=== PATIENT | male | born 1960 | race Caucasian/White ===

== ENCOUNTER → 2017-04-30 | Outpatient (CLI) | payer OTHER | END | disposition home or self-care (01) | LOC: LABWHC1 14:33 | PROVIDERS: ATTEND Internal Medicine | DX: G25.0 Essential tremor (principal) | CPT/HCPCS: 36415; 84439; 84443 ==

== ENCOUNTER 2017-11-03 08:47 | Day surgery (SDC) | payer OTHER ==
[2017-10-30 13:33] VITALS: BMI 25.0
[~2017-11-03 08:47] MED LIST: LACTATED RINGERS 1,000 ML IV SCH
[2017-11-03 09:12] VITALS: TEMP 97
[2017-11-03] MEDS ORDERED: PROPOFOL 10 MG/ML 20 ML VIAL IV ONE (09:35)
[2017-11-03] MEDS ORDERED: LIDOCAINE 1% INJ 10MG/ML (20 ML MDV) ONE (09:35)
--- NOTE | 2017-11-03 09:39 | P.GSHP ---
History of Present Illness H&P Date: 11/03/17 Chief Complaint: Colon cancer screening Patient here today for colonoscopy. Last colonoscopy 3 years ago. At that time he had a large polyp in the ascending colon that required surgical resection. This was performed by Dr. Stephens. No rectal bleeding or melena. Past Medical History Past Medical History: Osteoarthritis (OA), Pneumonia Additional Past Medical History / Comment(s): DDD, BULDGING DISCS WITH BACK PAIN , FREQUENT DIARRHEA. History of Any Multi-Drug Resistant Organisms: None Reported Past Surgical History: Bowel Resection, Tonsillectomy Additional Past Surgical History / Comment(s): PARTIAL COLECTOMY (PRE-CANCEROUS MASS), GANGLION CYST LEFT WRIST., INTERNAL HEMORRHOIDS. Past Anesthesia/Blood Transfusion Reactions: No Reported Reaction Additional Past Anesthesia/Blood Transfusion Reaction / Comment(s): STATES DIFFICULTY WAKING UP AFTER TONSILLECTOMY. Past Psychological History: No Psychological Hx Reported Smoking Status: Former smoker Past Alcohol Use History: Occasional Additional Past Alcohol Use History / Comment(s): QUIT SMOKING 1980, SMOKED 2 PPD., SMOKED 10 YEARS. Past Drug Use History: None Reported - Past Family History Mother Family Medical History: No Reported History Medications and Allergies Home Medications Medication Instructions Recorded Confirmed Type Ibuprofen [Motrin] 800 mg PO TID PRN 10/30/17 10/30/17 History Allergies Allergy/AdvReac Type Severity Reaction Status Date / Time amoxicillin Allergy Unknown Rash/Hives Verified 10/30/17 13:24 Surgical - Exam Vital Signs Temp Pulse Resp BP Pulse Ox 97.0 F L 92 16 132/83 98 11/03/17 09:11 11/03/17 09:11 11/03/17 09:11 11/03/17 09:11 11/03/17 09:11 Physical exam: General: Well-developed, well-nourished HEENT: Normocephalic, sclerae nonicteric Abdomen: Nontender, nondistended Extremities: No edema Neuro: Alert and oriented Assessment and Plan (1) Colon cancer screening Narrative/Plan: Will proceed with colonoscopy. Current Visit: Yes Status: Acute Code(s): Z12.11 - ENCOUNTER FOR SCREENING FOR MALIGNANT NEOPLASM OF COLON SNOMED Code(s): 794095627
--- NOTE | 2017-11-03 09:50 | P.PCN ---
Date of Procedure: 11/03/17 Procedure(s) Performed: PREOPERATIVE DIAGNOSIS: Colon cancer screening POSTOPERATIVE DIAGNOSIS: Normal exam PROCEDURE: Colonoscopy ANESTHESIA: MAC SURGEON: Ry Hurst M.D. SPECIMENS: None ENDOSCOPIC PROCEDURE: The patient was placed on the endoscopy table in the left decubitus position. The Olympus colonoscope was inserted into the anus and passed under direct visualization to the ileocolonic anastomosis. From that point the scope was slowly withdrawn. There were no neoplastic inflammatory or polypoid lesions throughout the transverse, descending, sigmoid and rectum. There was no diverticulosis noted. Digital rectal examination was normal. The patient was taken to the recovery room in stable condition per anesthesia guidelines. RECOMMENDATIONS: Increase fiber. Follow-up colon 5 years Disposition: observation
[2017-11-03 10:22] VITALS: BP 110/75; PULSE 89; RESP 18
== END 2017-11-03 10:41 | disposition home or self-care (01) ==
LOC: ORWHC2ENDO 08:47
PROVIDERS: ATTEND Surgery
DX: Z12.11 Encounter for screening for malignant neoplasm of colon (principal); Z87.19 Personal history of other diseases of the digestive system; M19.90 Unspecified osteoarthritis, unspecified site; R19.7 Diarrhea, unspecified; Z90.49 Acquired absence of other specified parts of digestive tract; Z87.891 Personal history of nicotine dependence; Z88.0 Allergy status to penicillin
CPT/HCPCS: J2001; J2704; G0121; 45378

== ENCOUNTER → 2018-11-17 | Outpatient (CLI) | payer MEDICAID ==
[2018-11-17 07:45] LABS: Basophils # (A) 0.1 k/uL (0-0.2); Basophils % (A) 1 %; Eosinophils # (A) 0.3 k/uL (0-0.7); Eosinophils % (A) 4 %; HGB 15.3 gm/dL (13.0-17.5); Lymphocytes # (A) 2.1 k/uL (1.0-4.8); Lymphocytes % (A) 33 %; MCH 30.4 pg (25.0-35.0); MCHC 33.3 g/dL (31.0-37.0); MCV 91.3 fL (80.0-100.0); Mean Platelet Volume 6.6; Monocytes # (A) 0.5 k/uL (0-1.0); Monocytes % (A) 8 %; Neutrophils # (A) 3.3 k/uL (1.3-7.7); Neutrophils % (A) 53 %; Platelet Count 259 k/uL (150-450); RBC 5.04 m/uL (4.30-5.90); RDW 12.9 % (11.5-15.5); WBC 6.3 k/uL (3.8-10.6)
[2018-11-17 11:49] LABS: Albumin 4.4 g/dL (3.80-4.90); Albumin/Globulin Ratio 2.32 (1.60-3.17); Anion Gap 6.5 mmol/L (4.00-12.00); Calcium 9.1 mg/dL (8.7-10.3); Carbon Dioxide 27.5 mmol/L (21.6-31.8); Globulin 1.9 g/dL (1.6-3.3); Potassium 4.1 mmol/L (3.5-5.5); Total Bilirubin 1.8 mg/dL (0.3-1.2); Total Protein 6.3 g/dL (6.2-8.2)
[2018-11-17 11:56] LABS: T4, Free (Free Thyroxine) 1.3 ng/dL (0.80-1.80)
[2018-11-17 13:17] LABS: Cat Epith & Dander IgE <0.10 kU/L; Dermato. farinae IgE <0.10 kU/L; Dog Dander IgE <0.10 kU/L
[2018-11-17 13:18] LABS: Alternaria alternata IgE <0.10 kU/L; Cockroach IgE <0.10 kU/L; Maple (Box Elder) IgE 0.46 kU/L
[2018-11-17 13:19] LABS: Birch IgE 3.15 kU/L; Elm IgE 0.16 kU/L; Oak IgE 0.35 kU/L; Ragweed,Common IgE <0.10 kU/L
[2018-11-17 14:41] LABS: Immunoglobulin M 36.6 mg/dL (40.0-280.0)
[2018-11-17 14:42] LABS: Red Top (Bentgrass) IgE 4.44 kU/L
[2018-11-17 15:06] LABS: Erythrocyte Sedimentation Rate 1 mm/hr (0-15)
== END ==
LOC: LABWHC1 07:05
PROVIDERS: ATTEND Internal Medicine
DX: Z00.00 Encounter for general adult medical examination without abnormal findings (principal); J32.9 Chronic sinusitis, unspecified; J30.9 Allergic rhinitis, unspecified
CPT/HCPCS: 84439; 80061; 80053; 85652; 84443; 85025; 86003; 82784 ×3; 82785; 86038; 36415; G0103

== ENCOUNTER → 2018-11-23 | Outpatient (CLI) | payer MEDICAID ==
--- NOTE | 2018-11-23 15:31 | CT ---
EXAMINATION TYPE: CT sinus wo con DATE OF EXAM: 11/23/2018 COMPARISON: NONE HISTORY: Facial pain and pressure per patient. Chronic sinusitis per order. CT DLP: 597 mGycm. Automated Exposure Control for Dose Reduction was Utilized. TECHNIQUE: CT scan of the sinuses is performed without contrast, axial images are obtained, coronal r eformatted images are also reviewed. FINDINGS: There is 2.5 cm mucous retention cyst or polyp in the posterior inferior left maxillary sin us coronal image 26. There is minimal mucosal thickening in the inferior right maxillary sinus. Ther e is mild to minimal mucosal thickening involving inferior frontal sinuses and anterior ethmoid sinus es bilaterally. No suspicious opacification or air-fluid levels are seen. The ostiomeatal complex is patent bilaterally on the coronal images. Visualized portion of mastoid air cells show no abnormal opacification. The globes are intact bilate rally. Visualized portion of brain parenchyma is unremarkable. IMPRESSION: Fairly mild chronic paranasal sinus disease. No acute sinusitis.
== END | disposition home or self-care (01) ==
LOC: RADCTMAIN 14:44
PROVIDERS: ATTEND Internal Medicine
DX: J32.8 Other chronic sinusitis (principal)
CPT/HCPCS: 70486

== ENCOUNTER → 2018-12-24 | Outpatient (CLI) | payer MEDICAID ==
--- NOTE | 2018-12-24 08:23 | CT ---
EXAMINATION TYPE: CT iac w con DATE OF EXAM: 12/24/2018 COMPARISON: None HISTORY: 58-year-old male left otalgia CT DLP: 254 mGycm Automated exposure control for dose reduction was used. TECHNIQUE: Contiguous high-resolution axial scanning of the temporal bones performed with IV Contras t, patient injected with 100 ml mL of Isovue 300. Coronal reformatted images obtained. FINDINGS: There is no abnormality of visualized intracranial structures allowing for thin section postcontrast technique. Distal V4 segment left vertebral artery after the PICA takeoff is hypoplastic. A couple prominent postauricular lymph nodes on the left measure up to 6 mm short axis. External auditory canals remain patent. The middle ear cavities and mastoid air cells are well opacified. The adjacent vertebral venous sinus remains well opacified. There is no abnormality of middle ear ossicles. The round and oval windows are normal. There is no abnormality of bony labyrinths. The vestibular and cochlear aqueducts are well visualized. The facial nerve canal is normal bilaterally. The internal auditory canal and meati are symmetrical bilaterally. There is no evidence of fractures. 1.7 cm polyp or mucosal retention cyst along the floor of the left maxillary sinus and trace mucosal thickening within the maxillary sinuses. Mild mucosal thickening involving the anterior ethmoid air c ells and bilateral frontal sinuses. Reformatted images confirm above findings. IMPRESSION: 1. A couple nonspecific prominent left-sided postauricular lymph nodes measuring up to 6 mm short axi s. Probably reactive/post inflammatory. 2. Otherwise, unremarkable temporal bone CT. 3. Mild chronic paranasal sinus disease.
== END | disposition home or self-care (01) ==
LOC: RADCTMAIN 07:11
PROVIDERS: ATTEND Otolaryngology
DX: J32.4 Chronic pansinusitis (principal); R59.0 Localized enlarged lymph nodes
CPT/HCPCS: 70481; Q9967

== ENCOUNTER → 2019-08-24 | Outpatient (CLI) | payer OTHER ==
[2019-08-24 16:26] LABS: Gliadin AB IgA, Deaminated NEGATIVE (NEGATIVE); Gliadin AB IgA, Unit 0.2 U/mL; Gliadin AB IgG, Deaminated NEGATIVE (NEGATIVE)
[2019-08-25 00:22] LABS: ALT 20 U/L (10-49); AST 24 U/L (14-35); Alkaline Phosphatase 102 U/L (41-126); Bilirubin, Conjugated <0.20 mg/dL (0.20-0.40); Chol/HDL Ratio 2.82; Cholesterol 124 mg/dL (0-200); LDL Cholesterol,Calculated 69.8 mg/dL (0.0-131.0); Total Bilirubin 0.4 mg/dL (0.3-1.2); Total Protein 6.4 g/dL (6.2-8.2)
== END | disposition home or self-care (01) ==
LOC: LABWHC1 08:22
PROVIDERS: ATTEND Allergy & Immunology
DX: K21.9 Gastro-esophageal reflux disease without esophagitis (principal)
CPT/HCPCS: 36415; 80061; 80076; 82784; 83516

== ENCOUNTER → 2021-02-26 | Outpatient (CLI) | payer OTHER ==
[2021-02-26 15:04] LABS: Basophils # (A) 0.06 X 10*3/uL (0.00-0.10); Basophils % (A) 1.1 %; Eosinophils # (A) 0.28 X 10*3/uL (0.04-0.35); Eosinophils % (A) 5.2 %; HGB 15.8 g/dL (13.0-17.0); Lymphocytes # (A) 1.84 X 10*3/uL (0.90-5.00); Lymphocytes % (A) 34.2 %; MCHC 32.9 g/dL (32.0-37.0); MCV 94.1 fL (80.0-97.0); Mean Platelet Volume 10.3 fL (9.5-12.2); Monocytes # (A) 0.48 X 10*3/uL (0.20-1.00); Monocytes % (A) 8.9 %; Neutrophils % (A) 50.2 %; Platelet Count 232 X 10*3/uL (140-440); WBC 5.38 X 10*3/uL (4.50-10.00)
[2021-02-26 15:55] LABS: African American GFR (CKD) 95.7 (60.0-200.0); Albumin 4.4 g/dL (3.80-4.90); Albumin/Globulin Ratio 1.91 (1.60-3.17); Anion Gap 7.2 mmol/L (4.00-12.00); Bilirubin, Conjugated 0.4 mg/dL (0.20-0.40); Bilirubin,Unconjugated 1.3 mg/dL; Calcium 9.2 mg/dL (8.7-10.3); Carbon Dioxide 26.8 mmol/L (21.6-31.8); Chol/HDL Ratio 3.63; Globulin 2.3 g/dL (1.6-3.3); LDL Cholesterol,Calculated 160.4 mg/dL (0.0-131.0); Non-African American GFR(CKD) 82.6 (60.0-200.0); Potassium 4.3 mmol/L (3.5-5.5); Total Bilirubin 1.7 mg/dL (0.2-1.2); Total Protein 6.7 g/dL (6.2-8.2); VLDL Calculation 18.6 mg/dL (5.00-40.00)
[2021-02-26 16:04] LABS: T4, Free (Free Thyroxine) 1.1 ng/dL (0.80-1.80)
[2021-02-26 16:53] LABS: Hemoglobin A1C 4.7 % (4.0-6.0)
== END | disposition home or self-care (01) ==
LOC: LABWHC1 10:59
PROVIDERS: ATTEND Internal Medicine
DX: Z00.00 Encounter for general adult medical examination without abnormal findings (principal); R42 Dizziness and giddiness
CPT/HCPCS: 84439; 84481; 80061; 80053; 82248; 84443; 85025; 83036; 36415; G0103

== ENCOUNTER 2021-11-27 09:43 | Day surgery (SDC) | payer OTHER ==
[2021-11-26 08:35] VITALS: BMI 26.3
[~2021-11-27 09:43] MED LIST changes: +LIDOCAINE 1% (10MG/ML) FOR IV START INTRADERMA PRN
[2021-11-27 10:50] VITALS: TEMP 97.8
[2021-11-27] MEDS ORDERED: LIDOCAINE 1% INJ 10MG/ML (20 ML MDV) ONE (11:20)
[2021-11-27] MEDS ORDERED: PROPOFOL 10 MG/ML 20 ML VIAL IV ONE (11:20)
--- NOTE | 2021-11-27 11:29 | P.GSHP ---
History of Present Illness H&P Date: 11/27/21 Chief Complaint: Rectal bleeding 61-year-old male recently has noticed some increased rectal bleeding. Patient with personal history of ascending colon polyp requiring right colectomy 10 years ago or so. Last colonoscopy 2 years ago and he had a small rectal polyp. No abdominal pain. Past Medical History Past Medical History: Asthma, GERD/Reflux, Hyperlipidemia, Osteoarthritis (OA), Pneumonia Additional Past Medical History / Comment(s): DDD, BULDGING DISCS WITH BACK PAIN, hx migraines, hx bowel "pre cancerous mass", blood in stool, ulcerative colitis, frequent diarrhea, History of Any Multi-Drug Resistant Organisms: None Reported Past Surgical History: Bowel Resection, Tonsillectomy Additional Past Surgical History / Comment(s): PARTIAL COLECTOMY (PRE-CANCEROUS MASS), GANGLION CYST LEFT WRIST., INTERNAL HEMORRHOIDECTOMY, colonoscopy Past Anesthesia/Blood Transfusion Reactions: Previous Problems w/ Anesthesia Additional Past Anesthesia/Blood Transfusion Reaction / Comment(s): STATES DIFFICULTY WAKING UP AFTER TONSILLECTOMY. Smoking Status: Former smoker - Past Family History Mother Family Medical History: No Reported History Medications and Allergies Home Medications Medication Instructions Recorded Confirmed Type Atorvastatin [Lipitor] 20 mg PO DAILY 11/26/21 11/27/21 History Cyanocobalamin (Vitamin B-12) 2,000 mcg PO DAILY 11/26/21 11/27/21 History [Vitamin B-12] Cyclobenzaprine [Flexeril] 5 mg PO BID 11/26/21 11/27/21 History Ibuprofen [Motrin] 800 mg PO Q8H PRN 11/26/21 11/27/21 History Meclizine [Antivert] 12.5 mg PO HS 11/26/21 11/27/21 History Vitamin C(Dose Unknown) 1 tab PO DAILY 11/26/21 11/27/21 History Vitamin D(Dose Unknown) 1 tab PO DAILY 11/26/21 11/27/21 History Allergies Allergy/AdvReac Type Severity Reaction Status Date / Time amoxicillin Allergy Unknown Rash/Hives Verified 11/27/21 10:39 Surgical - Exam Vital Signs Temp Resp BP Pulse Ox 97.8 F 17 131/90 99 11/27/21 10:36 11/27/21 10:36 11/27/21 10:36 11/27/21 10:36 Physical exam: General: Well-developed, well-nourished HEENT: Normocephalic, sclerae nonicteric Abdomen: Nontender, nondistended Extremities: No edema Neuro: Alert and oriented Assessment and Plan (1) Rectal bleeding Narrative/Plan: Will proceed with colonoscopy at this time. Current Visit: Yes Status: Acute Code(s): K62.5 - HEMORRHAGE OF ANUS AND RECTUM SNOMED Code(s): 31306370
[2021-11-27] MEDS ORDERED: IV FLUID CONTINUATION 1,000 ML IV ONE (11:45)
--- NOTE | 2021-11-27 11:45 | P.PCN ---
Date of Procedure: 11/27/21 Procedure(s) Performed: PREOPERATIVE DIAGNOSIS: Rectal bleeding POSTOPERATIVE DIAGNOSIS: Small hemorrhoids PROCEDURE: Colonoscopy ANESTHESIA: MAC SURGEON: Ry Hurst M.D. SPECIMENS: None ENDOSCOPIC PROCEDURE: The patient was placed on the endoscopy table in the left decubitus position. The Olympus colonoscope was inserted into the anus and passed under direct visualization to the ileocolonic anastomosis. The anastomosis was widely patent. From that point the scope was slowly withdrawn inspecting all surfaces carefully. There were no neoplastic inflammatory or polypoid lesions throughout the transverse, descending, sigmoid and rectum. Retroflexion at the anus took place. Small internal and external hemorrhoids were noted without evidence of recent or active bleeding. There was no visible diverticulosis. Digital rectal examination was normal. The patient was taken to the recovery room in stable condition per anesthesia guidelines. RECOMMENDATIONS: Increase fiber. Follow-up colonoscopy 5 years.
[2021-11-27 11:50] VITALS: BP 126/80; PULSE 87; RESP 16
== END 2021-11-27 12:29 | disposition home or self-care (01) ==
LOC: ORWHC2ENDO 09:43
PROVIDERS: ATTEND Surgery
DX: K64.8 Other hemorrhoids (principal); E78.5 Hyperlipidemia, unspecified; J45.909 Unspecified asthma, uncomplicated; K21.9 Gastro-esophageal reflux disease without esophagitis; K64.4 Residual hemorrhoidal skin tags; M19.90 Unspecified osteoarthritis, unspecified site; Z79.1 Long term (current) use of non-steroidal anti-inflammatories (NSAID); Z87.19 Personal history of other diseases of the digestive system; Z87.891 Personal history of nicotine dependence
CPT/HCPCS: 45378; J2001; J2704

== ENCOUNTER → 2022-05-01 | Outpatient (CLI) | payer OTHER ==
[2022-05-01 14:37] LABS: Basophils # (A) 0.05 X 10*3/uL (0.00-0.10); Basophils % (A) 0.8 %; Eosinophils # (A) 0.31 X 10*3/uL (0.04-0.35); Eosinophils % (A) 4.8 %; HGB 15.7 g/dL (13.0-17.0); Immature Grans, Automated 0.3 %; Lymphocytes # (A) 1.88 X 10*3/uL (0.90-5.00); Lymphocytes % (A) 29.1 %; MCH 31.7 pg (27.0-32.0); MCHC 34.1 g/dL (32.0-37.0); MCV 92.9 fL (80.0-97.0); Mean Platelet Volume 10.5 fL (9.5-12.2); Monocytes # (A) 0.53 X 10*3/uL (0.20-1.00); Monocytes % (A) 8.2 %; NRBC Per 100 WBC 0 /100 WBCS (0.0-0.0); Neutrophils # (A) 3.68 X 10*3/uL (1.80-7.70); Neutrophils % (A) 56.8 %; Platelet Count 249 X 10*3/uL (140-440); RBC 4.95 X 10*6/uL (4.40-5.60); RDW 12.4 % (11.5-14.5); WBC 6.47 X 10*3/uL (4.50-10.00)
[2022-05-01 15:11] LABS: Erythrocyte Sedimentation Rate 1 mm/Hr (0-20)
[2022-05-01 15:31] LABS: C Reactive Protein <0.30 mg/dL (0.00-0.80); Chol/HDL Ratio 2.49 Ratio; VLDL Calculation 14.08 mg/dL (5.00-40.00)
[2022-05-01 15:59] LABS: ALT 23 U/L (10-49); AST 29 U/L (14-35); African American GFR (CKD) 80.3 (60.0-200.0); Albumin 4.4 g/dL (3.8-4.9); Albumin/Globulin Ratio 1.96 (1.60-3.17); Alkaline Phosphatase 67 U/L (41-126); BUN/Creat Ratio 9.65 Ratio (12.00-20.00); Blood Urea Nitrogen 11.1 mg/dL (9.0-27.0); Calcium 9.2 mg/dL (8.7-10.3); Carbon Dioxide 26.4 mmol/L (20.0-27.5); Chloride 107 mmol/L (96-109); Globulin 2.2 g/dL (1.6-3.3); Glucose 81 mg/dL (70-110); Non-African American GFR(CKD) 69.3 (60.0-200.0); Potassium 4.2 mmol/L (3.5-5.5); Sodium 143 mmol/L (135-145); Total Protein 6.6 g/dL (6.2-8.2)
[2022-05-01 17:45] LABS: Rheumatoid Factor, Qnt <10 IU/mL (0-15)
== END | disposition home or self-care (01) ==
LOC: LABWHC1 08:27
PROVIDERS: ATTEND Internal Medicine
DX: M13.80 Other specified arthritis, unspecified site (principal); M12.9 Arthropathy, unspecified; G60.9 Hereditary and idiopathic neuropathy, unspecified; E78.1 Pure hyperglyceridemia
CPT/HCPCS: 36415; 80053; 80061; 82164; 82607; 84439; 84443; 84550; 85025; 85652; 86038; 86140; 86431

== ENCOUNTER → 2022-07-17 | Outpatient (CLI) | payer OTHER ==
[2022-07-17 17:31] LABS: Albumin 4.6 g/dL (3.8-4.9); Albumin/Globulin Ratio 2.09 (1.60-3.17); Bilirubin, Conjugated 0.32 mg/dL (0.20-0.40); Bilirubin,Unconjugated 1.48 mg/dL (0.20-1.00); Globulin 2.2 g/dL (1.6-3.3); Total Bilirubin 1.8 mg/dL (0.30-1.20); Total Protein 6.8 g/dL (6.2-8.2)
[2022-07-17 17:50] LABS: Hepatitis A Antibody IgM Nonreactive (Nonreactive); Hepatitis B Core IgM Nonreactive (Nonreactive); Hepatitis B Surface Antigen Nonreactive (Nonreactive); Hepatitis C IgG Antibody Nonreactive (Nonreactive)
== END | disposition home or self-care (01) ==
LOC: LABWHC1 08:47
PROVIDERS: ATTEND Internal Medicine
DX: R74.01 Elevation of levels of liver transaminase levels (principal); E80.7 Disorder of bilirubin metabolism, unspecified
CPT/HCPCS: 36415; 80074; 80076

== ENCOUNTER → 2023-03-20 | Outpatient (CLI) | payer OTHER ==
--- NOTE | 2023-03-20 12:30 | MR ---
EXAMINATION TYPE: MR cervical spine wo con DATE OF EXAM: 03/20/2023 COMPARISON: None HISTORY: Tingling/numbness in right arm/hand for 2 months. TECHNIQUE: Multiplanar, multisequence images of the cervical spine were acquired without contrast. FINDINGS: Cervical segments are intact. Grade 1 anterolisthesis of C2 on C3, C3 on C4, mild retrolisthesis of C 5 on C6. Cervical spinal cord is of normal signal. Craniovertebral junction relationships are within normal limits. Multilevel disc desiccation. C2-C3: Grade 1 anterolisthesis. Central disc protrusion with minimal effacement of the intrathecal sa c. Left facet arthropathy with mild left neural foraminal stenosis. The right neural foramen is paten t. C3-C4: Grade 1 anterolisthesis. Central disc protrusion superimposed upon a broad-based disc bulge. M ild effacement of the intrathecal sac. Uncovertebral joint hypertrophy resulting in mild left neural foraminal stenosis. The right neural foramen is patent. C4-C5: Broad-based disc bulge with uncovertebral joint hypertrophy resulting in mild central canal st enosis. [id number] bilateral neuroforaminal stenosis. C5-C6: Mild retrolisthesis. Central disc protrusion superimposed upon a broad-based disc bulge with m ild effacement of anterior thecal sac. Uncovertebral joint hypertrophy resulting in mild right and mo derate left neural foraminal stenosis. C6-C7: Central great disc bulge with mild effacement of anterior thecal sac. Uncovertebral joint hype rtrophy with moderate to severe right and [id number] left neural foraminal stenosis. C7-T1: No disc herniation or protrusion. No significant central canal stenosis. Uncovertebral joint h ypertrophy and facet arthropathy resulting in moderate to severe right neural foraminal stenosis. The left neural foramen is patent. IMPRESSION: 1. Small central disc herniations at C2-C3, C3-C4, and C5-C6 resulting in mild central canal stenosis . 2. Multilevel degenerative disc disease and facet arthropathy with uncovertebral joint hypertrophy as described above. This is most prominent at C5-T1.
== END | disposition home or self-care (01) ==
LOC: RADMRIMAIN 11:10
PROVIDERS: ATTEND Internal Medicine
DX: M50.11 Cervical disc disorder with radiculopathy, high cervical region (principal); M47.22 Other spondylosis with radiculopathy, cervical region; M48.02 Spinal stenosis, cervical region; M99.71 Connective tissue and disc stenosis of intervertebral foramina of cervical region
CPT/HCPCS: 72141

== ENCOUNTER → 2024-06-30 | Outpatient (CLI) | payer OTHER ==
[2024-06-30 15:10] LABS: Basophils # (A) 0.08 X 10*3/uL (0.00-0.10); Basophils % (A) 1.2 %; Eosinophils % (A) 6.1 %; HGB 15.1 g/dL (13.0-17.0); Lymphocytes # (A) 2.07 X 10*3/uL (0.90-5.00); Lymphocytes % (A) 31.7 %; MCH 30.8 pg (27.0-32.0); MCHC 32.8 g/dL (32.0-37.0); MCV 93.7 FL (80.0-97.0); Mean Platelet Volume 10.8 FL (9.5-12.2); Monocytes # (A) 0.53 X 10*3/uL (0.20-1.00); Monocytes % (A) 8.1 %; NRBC Per 100 WBC 0 X 10*3/uL (0.00-0.01); Neutrophils # (A) 3.44 X 10*3/uL (1.80-7.70); Neutrophils % (A) 52.7 %; Platelet Count 254 X 10*3/uL (140-440); RBC 4.91 X 10*6/uL (4.40-5.60); RDW 12.2 % (11.5-14.5); WBC 6.53 X 10*3/uL (4.50-10.00)
[2024-06-30 15:44] LABS: ALT 21 U/L (10-49); AST 22 U/L (14-35); Albumin 4.4 g/dL (3.8-4.9); Alkaline Phosphatase 73 U/L (41-126); Blood Urea Nitrogen 13.2 mg/dL (9.0-27.0); Calcium 9.5 mg/dL (8.7-10.3); Carbon Dioxide 27.9 mmol/L (21.6-31.8); Chloride 109 mmol/L (96-109); Chol/HDL Ratio 2.59 Ratio; Globulin 2.1 g/dL (1.6-3.3); Glucose 92 mg/dL (70-110); LDL Cholesterol,Calculated 86.8 mg/dL (0.0-131.0); PSA Annual Screen 0.801 ng/mL (0.000-4.000); Potassium 4.5 mmol/L (3.5-5.5); Sodium 145 mmol/L (135-145); T4, Free (Free Thyroxine) 1.21 ng/dL (0.80-1.80); Total Bilirubin 1.8 mg/dL (0.3-1.2); Total Protein 6.5 g/dL (6.2-8.2); VLDL Calculation 10.66 mg/dL (5.00-40.00)
== END | disposition home or self-care (01) ==
LOC: LABWHC1 10:20
PROVIDERS: ATTEND Internal Medicine
DX: Z12.5 Encounter for screening for malignant neoplasm of prostate (principal); E78.5 Hyperlipidemia, unspecified
CPT/HCPCS: 84439; 80061; 80053; 84443; 85025; 36415; G0103

== ENCOUNTER → 2024-12-23 | Outpatient (CLI) | payer OTHER ==
--- NOTE | 2024-12-23 16:19 | CT ---
EXAMINATION TYPE: CT abdomen pelvis w con DATE OF EXAM: 12/23/2024 3:45 PM COMPARISON: None CLINICAL INDICATION: Male, 64 years old with history of R19.0, K43.2 INCISIONAL HERNIA WITHOUT OBSTRU CTION; LUMP IN COLON, MULTIPLE HERNIAS IN ABDOMEN TECHNIQUE: Axial CT abdomen pelvis w con;Sagittal and coronal reformats were created on a separate w orkstation. Contrast used:100 ml mL of Isovue 300 with IV Contrast, (none if empty) Oral contrast used: with Oral Contrast (none if empty) CT DLP: 640.40 mGycm, Automated exposure control for dose reduction was used. FINDINGS: LOWER CHEST: Unremarkable ABDOMEN LIVER: Unremarkable GALLBLADDER AND BILE DUCTS: Layering increased densities within the lumen consistent with gallstones are present. PANCREAS: Unremarkable. SPLEEN: Unremarkable. ADRENAL GLANDS: Unremarkable. KIDNEYS AND URETERS: No evidence of hydronephrosis or obstructing renal calculus. The ureters are unr emarkable. PELVIS BLADDER: No evidence for wall thickening or mass given limitations of exam. REPRODUCTIVE: Unremarkable. ABDOMEN & PELVIS STOMACH AND BOWEL: The colon is without evidence for wall thickening. No evidence of bowel obstructio n. Scattered colonic diverticula. Moderate amount stool in the right colon. PERITONEUM/RETROPERITONEUM: No evidence of pneumoperitoneum or free fluid. VASCULATURE: No evidence of aortic aneurysm. MUSCULOSKELETAL: No acute osseous abnormalities. Moderate disc degeneration changes are present throu ghout the thoracolumbar spine. Moderate to severe bilateral neural foraminal stenosis at L5-S1 and mo derate bilateral L4-L5. LYMPH NODES: No gross evidence for lymphadenopathy. SOFT TISSUE/ABDOMINAL WALL: Left fat-containing inguinal hernia. Fat-containing umbilical hernia. Sma ll right fat-containing inguinal hernia. Fat-containing ventral wall hernia approximately 9 cm above the umbilicus. IMPRESSION: 1. Fat-containing ventral wall hernia with some inflammation the upper abdomen approximately 9 cm an d neck umbilicus directly superior. Correlate for simulated fat. 2. The colon is relatively unremarkable with a large stool burden in the right colon. No evidence fo r mass or bowel obstruction. 3. Bilateral fat-containing inguinal hernias and umbilical hernia. 4. Colonic diverticulosis. 5. Cholelithiasis. 6. Moderate degeneration changes of the spine with moderate to severe bilateral neural foraminal alida nosis at L5-S1 and moderate bilateral L4-L5. [facility], , 12/23/2024 4:16 PM
== END | disposition home or self-care (01) ==
LOC: RADCTMAIN 13:38
PROVIDERS: ATTEND Surgery
DX: K40.20 Bilateral inguinal hernia, without obstruction or gangrene, not specified as recurrent (principal); K57.30 Diverticulosis of large intestine without perforation or abscess without bleeding; K43.2 Incisional hernia without obstruction or gangrene; K80.20 Calculus of gallbladder without cholecystitis without obstruction; M99.73 Connective tissue and disc stenosis of intervertebral foramina of lumbar region; M99.74 Connective tissue and disc stenosis of intervertebral foramina of sacral region
CPT/HCPCS: 74177; Q9967